=== PATIENT | female | born 1955 | race Caucasian/White ===

== ENCOUNTER 2018-02-14 16:04 | Emergency (ER) | payer OTHER, SELFPAY ==
[2018-02-14] MEDS ORDERED: Lidocaine 1% w/Epinephrine 1:100K 30 ML VIAL ONE (16:16)
== END 2018-02-14 16:40 | disposition home or self-care (01) ==
LOC: BURERS 16:04
DX: S81.811A Laceration without foreign body, right lower leg, initial encounter (principal); G43.909 Migraine, unspecified, not intractable, without status migrainosus; I49.9 Cardiac arrhythmia, unspecified; Z79.82 Long term (current) use of aspirin; Z79.899 Other long term (current) drug therapy; W45.8XXA Other foreign body or object entering through skin, initial encounter
CPT/HCPCS: 12001; J2001

== ENCOUNTER 2019-03-28 08:26 | Emergency (ER) | payer OTHER ==
[2019-03-28] MEDS ORDERED: Ketorolac Tromethamine 60 MG/2 ML VIAL ONE (08:51)
--- NOTE | 2019-03-28 09:01 | RAD ---
EXAM: Chest 2 views: HISTORY: Cough COMPARISON: None. FINDINGS: There is a normal-sized cardiomediastinal silhouette. There is no evidence of consolidation, mass, or pleural effusion. The bones are unremarkable. IMPRESSION: No evidence of acute cardiopulmonary disease
== END 2019-03-28 09:38 | disposition home or self-care (01) ==
LOC: BURERS 08:26
DX: J06.9 Acute upper respiratory infection, unspecified (principal); R06.2 Wheezing; I49.9 Cardiac arrhythmia, unspecified; G43.909 Migraine, unspecified, not intractable, without status migrainosus; Z79.82 Long term (current) use of aspirin; Z79.899 Other long term (current) drug therapy
CPT/HCPCS: 71046; 96372; J1885; J7620

== ENCOUNTER 2020-11-30 10:24 | Outpatient (CLI) | payer MEDICARE, OTHER | END 2020-11-30 10:25 | disposition home or self-care (01) | LOC: BURRAD 10:24 | PROVIDERS: ATTEND Neurological Surgery | DX: S22.008D Other fracture of unspecified thoracic vertebra, subsequent encounter for fracture with routine healing (principal) | CPT/HCPCS: 72070 ==

== ENCOUNTER 2021-04-03 15:38 | Outpatient (CLI) | payer MEDICARE, OTHER | END 2021-04-03 15:39 | disposition home or self-care (01) | LOC: BURRAD 15:38 | PROVIDERS: ATTEND Family Medicine | DX: J98.9 Respiratory disorder, unspecified (principal) | CPT/HCPCS: 71046 ==